=== PATIENT | female | born 1955 | race Caucasian/White ===

== ENCOUNTER 2017-08-16 14:36 | Emergency (ER) | payer OTHER ==
[~2017-08-16] VITALS: Ht 157.5 cm; Wt 86.0 kg
[2017-08-16 14:40] VITALS: BP 117/68; PULSE 100; RESP 18; TEMP 97.7; O2SAT 94
[2017-08-16] MEDS ORDERED: BP MED (15:20)
--- NOTE | 2017-08-16 15:52 | PD ---
HPI Chief Complaint: Allergic/Adverse Reaction Time Seen by Provider: 15:44 Travel History International Travel<30 days: No Contact w/Intl Traveler<30days: No Traveled to known affect area: No History of Present Illness HPI 62-year-old female here for evaluation of a possible allergic reaction. Patient reports that when she woke up yesterday morning she had a swollen face, swollen hands, hives, and generalized pruritus. She has been taking Benadryl with mild improvement in symptoms. She still has lip and periorbital edema as well as bilateral hand swelling with hives on bilateral hands and pruritus. She states that she ate at a new restaurant the night before and believes that she may have had an allergic reaction to something she ate there. She denies dyspnea or difficulty swallowing. She had a similar reaction about 5 years ago , but is unsure what it was from. She has no known allergies. PFS Past Medical History Diminished Hearing: No Hypertension: Yes Tetanus Vaccination: Unknown ?: Not Past Surgical History Cholecystectomy: Yes Hysterectomy: Yes Social History Alcohol Use: No Tobacco Use: No Substance Use: No Allergies-Medications (Allergen,Severity, Reaction): Coded Allergies: No Known Allergies (Unverified , 08/16/17) Reported Meds & Prescriptions Reported Meds & Active Scripts Active Reported [Bp Med] Unknown Dose Review of Systems Except as stated in HPI: all other systems reviewed are Neg Physical Exam Narrative GENERAL: Well-developed, well-nourished, awake, alert, comfortable, no apparent distress. SKIN: Bilateral hands/upper extremities with areas of urticarial lesions with moderate hand swelling bilaterally. HEAD: Atraumatic. Normocephalic. EYES: Pupils equal and round. No scleral icterus. No injection or drainage. ENT: No nasal bleeding or discharge. Mucous membranes pink and moist. Moderate upper and lower lip swelling. No tongue swelling. No drooling or stridor. Normal phonation. NECK: Trachea midline. No JVD. CARDIOVASCULAR: Regular rate and rhythm. RESPIRATORY: No accessory muscle use. Clear to auscultation. Breath sounds equal bilaterally. GASTROINTESTINAL: Abdomen soft, non-tender, nondistended. MUSCULOSKELETAL: No obvious deformities. No clubbing. No cyanosis. No edema. NEUROLOGICAL: Awake and alert. No obvious cranial nerve deficits. Motor grossly within normal limits. Normal speech. PSYCHIATRIC: Appropriate mood and affect; insight and judgment normal. Data Data Last Documented VS Vital Signs Date Time Temp Pulse Resp B/P (MAP) Pulse Ox O2 Delivery O2 Flow Rate FiO2 08/16/17 17:47 95 Room Air 08/16/17 17:47 100 20 91/70 (77) 08/16/17 14:40 97.7 Orders Orders Basic Metabolic Panel (Bmp) (08/16/17 15:49) Complete Blood Count With Diff (08/16/17 15:49) Ecg Monitoring (08/16/17 15:49) Iv Access Insert/Monitor (08/16/17 15:49) Oximetry (08/16/17 15:49) Diphenhydramine Inj (Benadryl Inj) (08/16/17 16:00) Methylprednisolone So Succ Inj (Solumedr (08/16/17 16:00) Famotidine Inj (Pepcid Inj) (08/16/17 16:00) Sodium Chloride 0.9% Flush (Ns Flush) (08/16/17 16:00) Sodium Chlor 0.9% 1000 Ml Inj (Ns 1000 M (08/16/17 18:30) Labs Laboratory Tests Test 08/16/17 16:45 White Blood Count 12.9 TH/MM3 Red Blood Count 5.13 MIL/MM3 Hemoglobin 15.8 GM/DL Hematocrit 45.3 % Mean Corpuscular Volume 88.4 FL Mean Corpuscular Hemoglobin 30.8 PG Mean Corpuscular Hemoglobin Concent 34.8 % Red Cell Distribution Width 13.4 % Platelet Count 293 TH/MM3 Mean Platelet Volume 8.0 FL Neutrophils (%) (Auto) 84.7 % Lymphocytes (%) (Auto) 8.6 % Monocytes (%) (Auto) 5.4 % Eosinophils (%) (Auto) 0.4 % Basophils (%) (Auto) 0.9 % Neutrophils # (Auto) 10.9 TH/MM3 Lymphocytes # (Auto) 1.1 TH/MM3 Monocytes # (Auto) 0.7 TH/MM3 Eosinophils # (Auto) 0.1 TH/MM3 Basophils # (Auto) 0.1 TH/MM3 CBC Comment DIFF FINAL Differential Comment Blood Urea Nitrogen 13 MG/DL Creatinine 1.10 MG/DL Random Glucose 117 MG/DL Calcium Level 8.6 MG/DL Sodium Level 133 MEQ/L Potassium Level 4.0 MEQ/L Chloride Level 104 MEQ/L Carbon Dioxide Level 20.3 MEQ/L Anion Gap 9 MEQ/L Estimat Glomerular Filtration Rate 50 ML/MIN MDM Medical Decision Making Medical Screen Exam Complete: Yes Emergency Medical Condition: Yes Differential Diagnosis Allergic reaction, anaphylaxis Narrative Course Vital signs reviewed. CBC: WBC 12.9, hemoglobin 15.8, hematocrit 45.3, platelets 293. Neutrophils 85% . BMP is essentially unremarkable. The patient was given a liter normal saline IV, IV Solu-Medrol, IV Pepcid, and IV Benadryl, and on reassessment although her urticarial rash is still present, it has significantly improved. Patient is in no respiratory distress. She has normal phonation. She is able to swallow and tolerate her secretions without any difficulty. She feels comfortable going home to further manage her symptoms. I will give her a prescription for prednisone 50 mg daily for the next 5 days as well as an EpiPen. She will take Benadryl every 4-6 hours as needed for pruritus and hives. She will follow-up with her primary care physician tomorrow. She was advised on when to return to the emergency department. She verbalizes understanding and agreement with plan. Diagnosis Primary Impression: Allergic reaction Qualified Codes: T78.40XA - Allergy, unspecified, initial encounter Additional Impression: Urticaria Referrals: Primary Care Physician 1 day Additional Instructions: Follow-up with your primary care physician tomorrow. Return to the emergency department for worsening symptoms or any other concerns as discussed. Scripts Prednisone (Prednisone) 50 Mg Tab 50 MG PO DAILY for 5 Days, #5 TAB 0 Refills Prov: Paul Barakat MD 08/16/17 Epinephrine Inj (Epipen 2-Jj Inj) 0.3 Mg/0.3 Ml Pfpen 0.3 MG IM ONCE Y for ALLERGIC REACTION, #1 PACK 0 Refills Prov: Paul Barakat MD 08/16/17 Disposition: 01 DISCHARGE HOME Condition: Stable Paul Barakat MD Aug 16, 2017 15:52
[2017-08-16] MEDS ORDERED: FAMOTIDINE 20 MG/2 ML VIAL IV PUSH ONE (16:00)
[2017-08-16] MEDS ORDERED: methylPREDNISolone SOD SUCC 125 MG/2 ML VIAL IV PUSH ONE (16:00)
[2017-08-16] MEDS ORDERED: SODIUM CHLORIDE 0.9% FLUSH 10 ML FLUSH IV FLUSH PRN (16:00)
[2017-08-16] MEDS ORDERED: diphenhydrAMINE HCL 50 MG/ML VIAL IVP ONE (16:00)
[2017-08-16 16:59] LABS: AUTOMATED NEUTROPHIL # 10.9 TH/MM3 (1.8-7.7); BASOPHIL # 0.1 TH/MM3 (0-0.2); BASOPHIL % 0.9 % (0.0-2.0); EOSINOPHIL # 0.1 TH/MM3 (0-0.4); EOSINOPHIL % 0.4 % (0.0-4.0); HEMATOCRIT 45.3 % (35.0-46.0); HEMOGLOBIN 15.8 GM/DL (11.6-15.3); LYMPH % 8.6 % (9.0-44.0); LYMPHOCYTE # 1.1 TH/MM3 (1.0-4.8); MEAN CELL VOLUME 88.4 FL (80.0-100.0); MEAN CORPUSCULAR HEMOGLOBIN 30.8 PG (27.0-34.0); MEAN CORPUSCULAR HGB CONC 34.8 % (32.0-36.0); MONO % 5.4 % (0.0-8.0); MONOCYTE # 0.7 TH/MM3 (0-0.9); NEUT % 84.7 % (16.0-70.0); PLATELET COUNT 293 TH/MM3 (150-450); RED BLOOD COUNT 5.13 MIL/MM3 (4.00-5.30); RED CELL DISTRIBUTION WIDTH 13.4 % (11.6-17.2); WHITE BLOOD COUNT 12.9 TH/MM3 (4.0-11.0)
[2017-08-16 17:09] LABS: CALCIUM 8.6 MG/DL (8.5-10.1)
[2017-08-16 17:10] LABS: BICARBONATE 20.3 MEQ/L (21.0-32.0)
[2017-08-16 17:13] LABS: CREATININE 1.1 MG/DL (0.50-1.00)
[2017-08-16 17:47] VITALS: BP 91/70; PULSE 100; RESP 20; O2SAT 95
[2017-08-16] MEDS ORDERED: SODIUM CHLOR 0.9% 1000 ML INJ 1,000 ML IV ONE (18:30)
[2017-08-16 19:11] VITALS: BP 112/66; PULSE 92; RESP 20; O2SAT 95
[2017-08-16] MEDS ORDERED: EPIP0.3I IM (19:12)
[2017-08-16] MEDS ORDERED: PRED50 PO (19:12)
== END 2017-08-16 19:47 | disposition home or self-care (01) ==
LOC: PHED 14:36 → PHEFT 19:47
DX: T78.40XA Allergy, unspecified, initial encounter (principal); L50.9 Urticaria, unspecified; R60.0 Localized edema; R22.33 Localized swelling, mass and lump, upper limb, bilateral; L29.9 Pruritus, unspecified; I10 Essential (primary) hypertension
CPT/HCPCS: 80048; 85025; 96374; 96375; 99284; J1200; J2930; J7030